=== PATIENT | female | born 1965 ===

== ENCOUNTER 2021-10-27 05:55 | Day surgery (SDC) | payer OTHER ==
[~2021-10-27 05:55] MED LIST: Dextrose 5%-0.45% NaCl 1,000 ML IV SCH; Sodium Chloride 0.9% 10 ML Syringe FLUSH PRN; Sodium Chloride 0.9% 10 ML Syringe FLUSH SCH
[2021-10-27] MEDS ORDERED: fentaNYL 100 MCG/2 ML SDV IV ONE ×3 (05:56→07:04)
[2021-10-27] MEDS ORDERED: Midazolam 1 MG/ML 2 ML SDV IV ONE ×7 (05:56→07:12)
[2021-10-27] MEDS ORDERED: fentaNYL 100 MCG/2 ML SDV ONE (06:19)
[2021-10-27] MEDS ORDERED: Midazolam 1 MG/ML 2 ML SDV ONE (06:19)
== END 2021-10-27 09:30 | disposition home or self-care (01) ==
LOC: DL.ENDO 05:55
PROVIDERS: ATTEND Internal Medicine Gastroenterology
DX: Z12.11 Encounter for screening for malignant neoplasm of colon (principal); F32.9 Major depressive disorder, single episode, unspecified; F98.8 Other specified behavioral and emotional disorders with onset usually occurring in childhood and adolescence; M54.50 Low back pain, unspecified; D72.819 Decreased white blood cell count, unspecified; R71.8 Other abnormality of red blood cells; Z90.89 Acquired absence of other organs; Z98.890 Other specified postprocedural states
CPT/HCPCS: 45378; J2250; J3010; J7042

== ENCOUNTER 2023-01-02 16:35 | Emergency (ER) | payer OTHER ==
[2023-01-02] MEDS ORDERED: Lidocaine 2% with EPINEPHrine 1:200,000 20 ML SDV INJECT ONE (16:42)
[2023-01-02] MEDS ORDERED: Bacitracin Oint 1 GM U/D Packet TOP ONE (16:42)
== END 2023-01-02 17:35 | disposition home or self-care (01) ==
LOC: DL.ED 16:35
DX: S51.811A Laceration without foreign body of right forearm, initial encounter (principal); Z86.16 Personal history of COVID-19; W26.8XXA Contact with other sharp object(s), not elsewhere classified, initial encounter
CPT/HCPCS: 12001; 99282; A9270-GY; J3490

== ENCOUNTER 2023-05-20 23:13 | Emergency (ER) | payer OTHER ==
[2023-05-20] MEDS ORDERED: Sodium Chloride 0.9% 10 ML Syringe FLUSH PRN (23:19)
[2023-05-20] MEDS ORDERED: Sodium Chloride 0.9% 1,000 ML IV ONE (23:20)
[2023-05-20] MEDS ORDERED: Ondansetron 4 MG/2 ML SDV IVPUSH ONE (23:20)
[2023-05-20 23:32] LABS: BASOPHILS PERCENT AUTO 0.2 % (0.0-1.0); EOSINOPHILS PERCENT AUTO 0.5 % (1.0-3.0); HEMOGLOBIN 15.6 g/dL (12.0-16.0); LYMPHOCYTES PERCENT AUTO 6.9 % (20.5-50.1); MEAN CORPUSCULAR HEMOGLOBIN 28.1 pg (27.0-34.0); MEAN CORPUSCULAR HGB CONC 33.9 g/dL (33.0-35.0); MEAN CORPUSCULAR VOLUME 82.7 fL (80-100); MONOCYTES PERCENT AUTO 7.6 % (2-8); NEUTROPHILS PERCENT AUTO 84.8 % (42.2-75.2); PLATELET COUNT,PLT 197 10^3/uL (150-450); RED BLOOD CELL COUNT 5.56 10^6/uL (4.2-5.4); WHITE BLOOD CELL COUNT,WBC 13.6 10^3/uL (5.0-10.0)
[2023-05-20 23:51] LABS: A/G RATIO 1.2; ALBUMIN 4.8 g/dL (3.4-5.0); ANION GAP 19.3 mEq/L (7-13); BILIRUBIN TOTAL 0.9 mg/dL (0.2-1.0); BUN/CREATININE RATIO 18.1 (No establ ref range); C-REACTIVE PROTEIN 0.06 ng/dL (<=0.30); CALCIUM 10.2 mg/dL (8.5-10.1); CREATININE 1.27 mg/dL (0.55-1.02); EST CRCL DRUG DOSING (CG) 42.71 mL/min; POTASSIUM,K 4.3 mmol/L (3.5-5.1); PROTEIN TOTAL,TP 8.7 g/dL (6.4-8.2)
[2023-05-20 23:54] LABS: LACTIC ACID 1.4 mmol/L (0.4-2.0)
[2023-05-21 00:11] LABS: INFLUENZA A NAA NEGATIVE (NEGATIVE); INFLUENZA B NAA NEGATIVE (NEGATIVE)
[2023-05-21 00:19] LABS: CORONAVIRUS COVID-19 NAA POSITIVE (NEGATIVE)
[2023-05-21] MEDS ORDERED: Sodium Chloride 0.9% 1,000 ML IV ONE (00:22)
[2023-05-21 00:29] LABS: APPEARANCE,URINE CLEAR (CLEAR); BILIRUBIN,URINE NEGATIVE (NEGATIVE); COLOR,URINE YELLOW (YELLOW); GLUCOSE,URINE NEGATIVE (NEGATIVE); KETONES,URINE 15 (NEGATIVE); LEUKOCYTE ESTERASE,URINE NEGATIVE (NEGATIVE); NITRITE,URINE NEGATIVE (NEGATIVE); OCCULT BLOOD,URINE NEGATIVE (NEGATIVE); PROTEIN,URINE >=300 (NEGATIVE); UROBILINOGEN,URINE 0.2 mg/dL (0.2-1.0)
[2023-05-21] MEDS ORDERED: Take Home: Ondansetron 4 MG Tab.DIS, 5 Tab Pack PO ONE (00:33)
[2023-05-21 00:39] LABS: BACTERIA,URINE MODERATE /HPF (0-FEW/HPF); CALCIUM OXALATE CRYSTALS,URINE FEW /HPF (NOT SEEN); EPITHELIAL CELLS,URINE MODERATE /HPF (NOT SEEN); HYALINE CASTS,URINE FEW; MUCUS,URINE MODERATE /LPF (NOT SEEN); RBC,URINE 0-5 /HPF (0-5); WBC,URINE 0-5 /HPF (0-5/HPF)
== END 2023-05-21 00:57 | disposition home or self-care (01) ==
LOC: DL.ED 23:13
DX: R11.2 Nausea with vomiting, unspecified (principal); R19.7 Diarrhea, unspecified; Z20.822 Contact with and (suspected) exposure to COVID-19; Z86.16 Personal history of COVID-19; Z79.899 Other long term (current) drug therapy
CPT/HCPCS: 0240U; 36415; 80053; 81001; 82150; 83605; 83690; 85025; 86140; 96360; 99284; J7030; Q0162; J3490